=== PATIENT | male | born 1955 | race Caucasian/White ===

== ENCOUNTER 2019-10-27 07:30 | Observation (INO) ==
[2019-11-03] MEDS ORDERED: Lactated Ringers 1000 ml BAG 1,000 ML IV SCH (06:00)
[2019-11-03] MEDS ORDERED: ceFAZolin 2 GM PREMIX in ORs 2 GM/50 ML BAG ONE (09:51)
[2019-11-03] MEDS ORDERED: fentaNYL 100 mcg/2 ml 50 MCG/ML VIAL ONE ×3 (11:11→14:05)
[2019-11-03] MEDS ORDERED: Propofol 10 MG/ML 20 ML BTL ONE (11:11)
[2019-11-03] MEDS ORDERED: Midazolam 2 mg/2 ml VIAL 1 mg/ml 2 ml VIAL (2 mg) ONE (11:12)
[2019-11-03] MEDS ORDERED: Rocuronium 50 mg VIAL 10 mg/ml 5 ml VIAL (50 mg) ONE (11:12)
[2019-11-03] MEDS ORDERED: Dexamethasone IV 4 MG/ML VIAL 1 ml VIAL ONE (11:34)
[2019-11-03] MEDS ORDERED: Acetaminophen IV 1 GM/100ML 1,000 MG/100 ML VIAL IVPB ONE (12:23)
[2019-11-03] MEDS ORDERED: Naloxone 0.4 mg VIAL 0.4 mg/ml 1 ml VIAL IV PRN (12:23)
[2019-11-03] MEDS ORDERED: DiMENhydriNATE IV 50 mg/ml 1 ml VIAL IV PUSH PRN (12:23)
[2019-11-03] MEDS ORDERED: Ondansetron 4 mg VIAL 2 MG/ML 2 ml VIAL IV PRN ×2 (12:23→14:02)
[2019-11-03] MEDS ORDERED: oxyCODONE/Acetamin 5/325 mg TAB PO PRN ×2 (12:23→14:02)
[2019-11-03] MEDS ORDERED: Ondansetron 4 mg VIAL 2 MG/ML 2 ml VIAL ONE (13:22)
[2019-11-03] MEDS ORDERED: Lactulose 30 ml UDC PO PRN (14:02)
[2019-11-03] MEDS ORDERED: diPHENhydraMINE 25 mg TAB PO PRN (14:02)
[2019-11-03] MEDS ORDERED: Magnesium Hydroxide LIQ 30 ML UDC PO PRN (14:02)
[2019-11-03] MEDS ORDERED: Ondansetron ODT 4 mg TAB 4 MG TAB PO PRN (14:02)
[2019-11-03] MEDS ORDERED: diPHENhydraMINE IV 50 MG/ML 1 ml VIAL (BENADRYL) IV PRN (14:02)
[2019-11-03] MEDS ORDERED: Acetaminophen IV 1 GM/100ML 100 ML ONE (14:05)
[2019-11-03] MEDS: fentaNYL 100 mcg/2 ml 50 MCG/ML VIAL IV PRN ×4 (14:07→14:15)
[2019-11-03] MEDS ORDERED: HYDROmorphone 1 MG/1 ML SYRINGE ONE (14:25)
[2019-11-03] MEDS: HYDROmorphone 1 MG/1 ML SYRINGE IV PRN ×5 (14:26→15:00)
[2019-11-03] MEDS ORDERED: oxyCODONE/Acetamin 5/325 mg TAB ONE (14:30)
[2019-11-03] MEDS ORDERED: Polyethylene Glycol 3350 17 GM PACKET PO PRN (15:00)
[2019-11-03] MEDS: Lactated Ringers 1000 ml BAG 1,000 ML IV SCH (15:31)
[2019-11-03] MEDS: oxyCODONE/Acetamin 5/325 mg TAB PO PRN (18:35)
[2019-11-03] MEDS ORDERED: Dextran 70/Hypromellose Tears Eye Drops 15 ml BTL (for Artificials Tears) RIGHT EYE PRN (18:37)
[2019-11-03] MEDS: Magnesium Hydroxide LIQ 30 ML UDC PO SCH (19:56)
[2019-11-03] MEDS: ceFAZolin 1 GM in Dextrose (*) 1 GM/50 ML BAG IVPB SCH (21:05)
[2019-11-04] MEDS: oxyCODONE/Acetamin 5/325 mg TAB PO PRN ×3 (02:33→12:59)
[2019-11-04] MEDS: Lactated Ringers 1000 ml BAG 1,000 ML IV SCH (02:34)
[2019-11-04] MEDS: ceFAZolin 1 GM in Dextrose (*) 1 GM/50 ML BAG IVPB SCH ×2 (03:50→11:16)
[2019-11-04 05:11] LABS: Hematocrit 28 % (42-52); Hemoglobin 9.5 g/dL (14.0-18.0); Platelet Count 208 10^3/uL (150-450)
[2019-11-04 05:29] LABS: BUN/Creatinine Ratio 20.4 (8-20); Calcium 8.3 mg/dL (8.6-10.3); EGFR African American 92.6 (>60); EGFR Non-African American 76.5 (>60); Potassium 3.5 mmol/L (3.5-5.0)
[2019-11-04] MEDS: Magnesium Hydroxide LIQ 30 ML UDC PO SCH (08:58)
[2019-11-04] MEDS ORDERED: LOSARTAN HYDROCHLOROTHIAZIDE PO SCH (09:00)
[2019-11-04] MEDS ORDERED: Vitamin THERAPEUTIC TAB PO SCH (09:00)
[2019-11-04 11:37] VITALS: BP 113/63
== END 2019-11-04 14:47 | disposition home or self-care (01) ==
LOC: INTOOBSV 11-03 09:35 → AA 11-03 09:35 → SSU 11-03 15:13
PROVIDERS: ADMIT Orthopaedic Surgery Adult Reconstructive Orthopaedic Surgery; ATTEND Orthopaedic Surgery Adult Reconstructive Orthopaedic Surgery